=== PATIENT | male | born 1950 | race Caucasian/White ===

== ENCOUNTER → 2016-06-05 | Day surgery (SDC) | payer MEDICARE, OTHER ==
[~2016-06-05] MED LIST: ADVAIR 250-501 EACH IH; AFEDITAB CR; AFEDITAB CR30 MG PO; ASPIRIN325 M1 PO; CITALOPRAM HBR40 MG PO; COLESTID PO; ENBREL50 MG/M1 SQ; GABAPENTIN300 M2 PO; HYDROCODONE-APA1 T54 PO; KLONOPIN1 M1 PO; KLONOPIN1 MG PO; LISINOPRIL-HCTZ1 T16 PO; LOZOL PO; METFORMIN HCL500 M1 PO; METHOTREXATE2.5 MG PO; METOPROLOL SUCC25 MG PO; NEURONTIN300 MG PO; NIFEDIPINE ER60 M1 PO; PRAVACHOL80 MG PO; PRAVASTATIN SOD20 MG PO; PRAVASTATIN SOD40 MG PO; PROZAC PO; SPIRIVA18 MCG INH; SYMBICORT 16010.2 GM INH; WELLBUTRIN PO; WELLBUTRIN100 MG PO
--- NOTE | ~2016-06-05 | OR ---
Unit #: [id number] #: [id number] Patient: PJ ABBASI [id number] [address] [place], [place] [address] [id number] O MR#: [id number] NAME: PJ ABBASI ROOM: Date of Procedure: 06/05/2016 Admission Date: 06/05/2016 Surgeon: Evaristo George M.D. : 1950 Attending Physician: Evaristo George M.D. Primary Care Physician: Abner Schulz D.O. OPERATIVE REPORT PREOPERATIVE DIAGNOSES The patient came for surveillance colonoscopy. He has personal history of colonic polyps. PROCEDURES PERFORMED Colonoscopy and polypectomy. POSTOPERATIVE DIAGNOSES 1. Small internal hemorrhoids. 2. Moderate sigmoid and descending colon diverticulosis. 3. Three sessile polyps were noted, one each in the cecum, transverse colon, and ascending colon. These were removed using snare polypectomy retrieved and sent for histology. Rest of the examination up to cecum and terminal ileum was normal. The quality of the prep was excellent. 4. In addition, multiple random colonic biopsies were also obtained in view of the patient's history of diarrhea and fecal incontinence. RECOMMENDATIONS 1. Follow up the results of polyp histology and colonic biopsies. 2. Consider repeat colonoscopy in 3 to 5 years. 3. The patient will be followed up in the office in 3 to 4 months' time. SEDATION USED MAC. DESCRIPTION OF PROCEDURE Following detailed explanation of potential risks and complications of a colonoscopy, namely perforation, bleeding, and complication related to sedation, the patient was brought to GI lab and laid in the left lateral decubitus position. A digital rectal examination was performed, which was normal. Lubricated tip of the Olympus video colonoscope was inserted through the anus and advanced under direct vision. The scope was advanced past rectosigmoid into descending colon. Multiple medium-sized diverticula were noted in this area. The scope tip was then navigated all the way up to cecum with visualization of the ileocecal valve and the appendiceal orifice. Preparation was excellent with good visualization and photodocumentation was obtained. Last several inches of the terminal ileum were also visualized after intubation of the ileocecal valve and appeared normal. Successive segments of the colonic mucosa were examined upon withdrawal. A total of three sessile polyps noted, one each in the cecum, ascending colon, and transverse colon. The polyps ranged in size from 5 mm to a centimeter each. All were removed using snare polypectomy. Unit #: [id number] #: [id number] Patient: PJ ABBASI They were retrieved and sent for histology. No additional polyps were noted. Other than the left-sided diverticula, the patient was also noted to have small internal hemorrhoids seen at the anal verge. Multiple random colonic biopsies were obtained from throughout the colon to rule out microscopic or collagenous colitis. The scope was then withdrawn and the patient returned to the recovery area. He tolerated the procedure without any postprocedure complications. Dictated by... Deanne Hutson/ethan TD: 06/06/2016 02:33 JOB #: [id number] OPERATIVE REPORT Page 1 of 1 X Evaristo George MD X PROCEDURE OPERATIVE NOTE
== END | disposition home or self-care (01) ==
LOC: COPS 06:32
DX: D12.0 Benign neoplasm of cecum (principal); D12.2 Benign neoplasm of ascending colon; D12.3 Benign neoplasm of transverse colon; K64.8 Other hemorrhoids; K57.30 Diverticulosis of large intestine without perforation or abscess without bleeding; J44.9 Chronic obstructive pulmonary disease, unspecified; M19.90 Unspecified osteoarthritis, unspecified site; Z85.46 Personal history of malignant neoplasm of prostate; Z88.5 Allergy status to narcotic agent; Z79.899 Other long term (current) drug therapy; Z96.653 Presence of artificial knee joint, bilateral; Z98.890 Other specified postprocedural states
CPT/HCPCS: 88305; J2250